=== PATIENT | male | born 1935 | race Caucasian/White ===

== ENCOUNTER 2018-10-20 08:45 | Outpatient (CLI) | payer OTHER ==
--- NOTE | 2018-10-21 15:14 | XRAY Report ---
Reason: KNEE PAIN Procedure Date: 10/20/2018 Accession Number: [id number] / [id number] Procedure: XRN - Knee 3 View LT CPT Code: FULL RESULT: EXAM: LEFT KNEE RADIOGRAPHY EXAM DATE: 10/20/2018 09:18 AM. CLINICAL HISTORY: Knee pain post fall. COMPARISON: None. TECHNIQUE: 3 views. FINDINGS: Bones: No fractures or bone lesions. Joints: There is mild generative process with minimal periarticular spurring in the tricompartments and small amount of effusion. No subluxations. Soft Tissues: No soft tissue swelling. IMPRESSION: 1. Small amount of joint effusion. Negative for fracture or subluxation. 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 Kellgren Marino Grade 2. Kellgren and Marino classification of osteoarthritis: Grade 0: no radiographic features of osteoarthritis are present Grade 1: doubtful joint space narrowing (JSN) and possible osteophytic lipping Grade 2: definite osteophytes and possible JSN on anteroposterior weight-bearing radiograph Grade 3: multiple osteophytes, definite JSN, sclerosis, possible bony deformity Grade 4: large osteophytes, marked JSN, severe sclerosis and definite bony deformity RADIA
== END 2018-10-20 08:46 | disposition home or self-care (01) ==
LOC: DI.N 08:45
PROVIDERS: ATTEND Family Medicine
DX: M17.12 Unilateral primary osteoarthritis, left knee (principal); M25.462 Effusion, left knee

== ENCOUNTER 2018-12-22 08:07 | Outpatient (CLI) | payer OTHER ==
--- NOTE | 2018-12-23 15:35 | Ultrasound Report ---
Reason: LT KNEE BAKERS CYST Procedure Date: 12/22/2018 Accession Number: [id number] / [id number] Procedure: US - Ext Limited Non Vascular CPT Code: FULL RESULT: EXAM: LEFT LOWER EXTREMITY ULTRASOUND - LIMITED EXAM DATE: 12/22/2018 09:06 AM. CLINICAL HISTORY: LT KNEE BAKERS CYST. COMPARISON: KNEE 3 VIEW LT 10/20/2018 9:23 AM. TECHNIQUE: Real-time scanning was performed with static images obtained of left popliteal fossa soft tissue region. FINDINGS: No Rees's cyst or left knee joint effusion evident. IMPRESSION: Normal exam. No sonographic evidence for Rees's cyst. RADIA
== END 2018-12-22 08:08 | disposition home or self-care (01) ==
LOC: DI 08:07
PROVIDERS: ATTEND Family Medicine
DX: M71.22 Synovial cyst of popliteal space [Baker], left knee (principal)
CPT/HCPCS: 76882